=== PATIENT | female | born 1960 | race Caucasian/White ===

== ENCOUNTER 2018-08-30 14:43 | Emergency (ER) | payer SELFPAY, OTHER ==
[2018-08-30 16:10] LABS: URINE BLOOD (Dip) POC Negative (NEGATIVE); URINE GLUCOSE (Dip) POC Negative (NEGATIVE); URINE KETONES (Dip) POC Negative (NEGATIVE); URINE LEUKOCYTE EST (Dip) POC Trace (NEGATIVE); URINE NITRITE (Dip) POC Negative (NEGATIVE); URINE TOTAL PROTEIN POC Negative (NEGATIVE)
[2018-08-30 16:10] LABS: URINE PH (Dip) POC 7.5 (5.0-8.5)
== END 2018-08-30 17:40 | disposition home or self-care (01) ==
LOC: FTE 14:43
DX: M54.5 Low back pain (principal); X58.XXXA Exposure to other specified factors, initial encounter; Y92.89 Other specified places as the place of occurrence of the external cause; Z04.2 Encounter for examination and observation following work accident
CPT/HCPCS: 72100; 81003; 81025; 99283-25